=== PATIENT | male | born 1990 | race Caucasian/White ===

== ENCOUNTER 2024-07-20 15:05 | Outpatient (CLI) | payer OTHER, SELFPAY ==
--- NOTE | ~2024-07-20 | CT_ITS ---
CLINICAL INDICATION: Abdominal pain COMPARISON: None. TECHNIQUE: Multiple contiguous axial images of the abdomen and pelvis were performed following the ad ministration of with 100 mL Omnipaque-350 intravenous contrast The dose-length product (DLP) was 988.48 mGy-cm. Automated exposure control and iterative reconstruction technique were employed. FINDINGS/OBSERVATIONS: Visualized lower thorax: 5.3 mm nodule within the right lower lobe (axial series, image 6). The remainder of the bilateral lung bases are clear. The heart is of normal size, without pericardial effusion. Small hiatal hernia is present. Liver: Liver enhances homogeneously and is not enlarged measuring 18 cm in longitudinal dimension. Gallbladder and biliary system: The gallbladder is only minimally distended, and otherwise unremarkable. Pancreas: The pancreas enhances homogeneously without ductal dilatation. Spleen: The spleen enhances homogeneously and is not enlarged measuring 11 cm in longitudinal dimension. Kidneys: The bilateral kidneys enhance symmetrically without hydronephrosis or renal calculi. Adrenal glands: Unremarkable. Gastrointestinal tract: Colonic diverticulosis without surrounding inflammatory change. Appendix: The appendix is elongated, and is air-filled but moderately distended with a caliber of 10.5 mm. Trac e surrounding inflammatory change is noted, without hyperemia or periappendiceal fluid. The appendix can be visualized on axial series, image 66 through 82. Vasculature: Unremarkable. No aneurysmal dilatation or significant stenosis. Lymph nodes: No pathologically enlarged or morphologically suspicious lymph nodes within the retroperitoneum or at the root of the mesentery. Scattered nonpathologically enlarged lymph nodes detected within the mese ntery, a nonspecific finding in a patient this age. Pelvic structures: The bladder is distended, and otherwise unremarkable. The prostate gland is not enlarged. Right-sided hydrocele is visualized. Body wall and musculoskeletal: Small fat-containing umbilical hernia. No significant degenerative disease within the lower thoracic or lumbosacral spine. IMPRESSION: Air-filled elongated distended appendix with a caliber of 10.5 mm and trace surrounding inflammatory change for which clinical correlation is needed. Right-sided hydrocele Right lower lobe nodule, measuring 5 mm. Fleischner guidelines does not pertain to a patient of this age. Follow-up as clinically indicated. Reviewed, dictated and finalized at location A. THCARE SOCIAL WORKER IMPRESSION: Air-filled elongated distended appendix with a caliber of 10.5 mm and trace keyur rounding inflammatory change for which clinical correlation is needed. Right-sided hydrocele Right lower lobe nodule, measuring 5 mm. Fleischner guidelines does not pertain to a patient of this age. Follow-up as c linically indicated.
== END 2024-07-20 15:06 | disposition home or self-care (01) ==
PROVIDERS: PCP Internal Medicine; Visit Provider Clinical Nurse Specialist
DX: R10.9 Unspecified abdominal pain (principal); R10.33 Periumbilical pain; N50.811 Right testicular pain; N50.812 Left testicular pain; N43.3 Hydrocele, unspecified; R91.1 Solitary pulmonary nodule
CPT/HCPCS: 74177; Q9967

== ENCOUNTER 2024-11-07 07:56 | Outpatient (CLI) | payer OTHER, SELFPAY ==
--- NOTE | ~2024-11-07 | CT_ITS ---
CT of the Abdomen and Pelvis: Indication: Abdominal pain Technique: 2.5 mm axial scans were obtained through the abdomen and pelvis following intravenous adm inistration of 100 cc of Omnipaque 350. Dose reduction technique was used on this scan by utilizing a utomated exposure control and iterative reconstruction technique. The dose-length product (DLP) was 5 71.49 mGy-cm. COMPARISON: 08/02/2024 Findings: Scans through the lung bases are unremarkable. The liver, spleen, pancreas, gallbladder, adrenals and kidneys are within normal limits. No evidence of aortic aneurysm. No lymphadenopathy. No bowel obstruction or bowel wall thickening. Appendix measures up to 9 mm in diameter, but there is no periappendiceal inflammatory change, and there is air throughout the length of the appendix.. Images through the pelvis were performed. Urinary bladder unremarkable. No pelvic mass seen. No ascit es. Impression: Mildly prominent appendix by size measurements, but no other imaging findings are seen to suggest acu te appendicitis. This is felt to most likely represent a prominent but otherwise normal appendix rath er than acute appendicitis. Correlate clinically. Reviewed, dictated and finalized at location . Impression: Mildly prominent appendix by size measurements, but no other imaging findings a re seen to suggest acute appendicitis. This is felt to most likely represent a prominent but otherwise normal appendix rather than acute appendicitis. Correla te clinically.
--- OUTSIDE RECORDS SUMMARY | 2024-11-07 08:10 | XMS_ITS | Referral Summary ---
Author Organization [facility] Address [address] [place] [address] Care Team Providers Care Cash Poster Name Role Phone No, Physician Primary Care Provider [phone] Allergies No known active allergies Medications naproxen (NAPROSYN) 500 mg tablet Take 1 tablet (500 mg total) by mouth 2 (two) times a day with meals 30 tablet 06/11/2024 Active Active Problems Problem Noted Date Diagnosed Date Neck pain 11/27/2014 Overview (10/21/2016): Neck pain Social History Tobacco Use Types Packs/Day Years Used Date Smoking Tobacco: Never Assessed Personal Safety Answer Date Recorded Have you ever been in or are you currently in a harmful physical or emotional relationship or is someone making you feel afraid or unsafe? Denies 06/11/2024 Sex and Gender Information Value Date Recorded Sex Assigned at Not on file Legal Sex Male 12:09 PM HAIR STYLIST Gender Identity Not on file Sexual Orientation Not on file Last Filed Vital Signs Vital Sign Reading Time Taken Comments Blood Pressure 148/78 06/11/2024 3:58 PM HAIR STYLIST Pulse 84 06/11/2024 3:58 PM HAIR STYLIST Temperature 36.7 C (98.1 F) 06/11/2024 2:18 PM HAIR STYLIST Respiratory Rate 18 06/11/2024 3:58 PM HAIR STYLIST Oxygen Saturation 98% 06/11/2024 3:58 PM HAIR STYLIST Inhaled Oxygen Concentration - - Weight 95.3 kg (210 lb) 06/11/2024 12:06 PM HAIR STYLIST Height 182.9 cm (6') 06/11/2024 12:06 PM HAIR STYLIST Body Mass Index 28.48 06/11/2024 12:06 PM HAIR STYLIST Plan of Treatment Not on file Insurance [employer] OPEN ACCESS [employer] OPEN ACCESS Care Teams Cash Poster Relationship Specialty Start Date End Date No, Physician PCP - General 07/08/20
--- OUTSIDE RECORDS SUMMARY | 2024-11-07 08:10 | XMS_ITS | Clinical Summary ---
Author Organization [facility] Address [address] [place] [address] Care Team Providers Care Manager Market Name Role Phone No, Physician Primary Care Provider [phone] Allergies No known active allergies Medications naproxen (NAPROSYN) 500 mg tablet Take 1 tablet (500 mg total) by mouth 2 (two) times a day with meals 30 tablet 06/11/2024 Active Active Problems Problem Noted Date Diagnosed Date Neck pain 11/27/2014 Overview (10/21/2016): Neck pain Medical History Medical History Date Comments Hx Other Medical Tonsillectomy 2 003.; Comments: JAI 12/17/2014 - Social History Tobacco Use Types Packs/Day Years Used Date Smoking Tobacco: Never Assessed Personal Safety Answer Date Recorded Have you ever been in or are you currently in a harmful physical or emotional relationship or is someone making you feel afraid or unsafe? Denies 06/11/2024 Sex and Gender Information Value Date Recorded Sex Assigned at Not on file Legal Sex Male 12:09 PM BOOM STORAGE Gender Identity Not on file Sexual Orientation Not on file Obstetrics History Last Filed Vital Signs Vital Sign Reading Time Taken Comments Blood Pressure 148/78 06/11/2024 3:58 PM BOOM STORAGE Pulse 84 06/11/2024 3:58 PM BOOM STORAGE Temperature 36.7 C (98.1 F) 06/11/2024 2:18 PM BOOM STORAGE Respiratory Rate 18 06/11/2024 3:58 PM BOOM STORAGE Oxygen Saturation 98% 06/11/2024 3:58 PM BOOM STORAGE Inhaled Oxygen Concentration - - Weight 95.3 kg (210 lb) 06/11/2024 12:06 PM BOOM STORAGE Height 182.9 cm (6') 06/11/2024 12:06 PM BOOM STORAGE Body Mass Index 28.48 06/11/2024 12:06 PM BOOM STORAGE Plan of Treatment Health Maintenance Due Date Last Done Comments Depression Screening 1991 Hepatitis C Screening 1991 DTaP/Tdap/Td Vaccine (1 - Tdap) 2002 Varicella Vaccines (1 of 2 - 13+ 2-dose series) 02/05/2004 Hepatitis B Screening 2009 Regular Well Visit/Exam 18-64 2009 Influenza Vaccine (Season Ended) 2025 HPV Vaccines Aged Out No longer eligi ble based on patient's age to complete this topic Pneumococcal vaccine <65 Aged Out No longer eligible based on patient's age to complete this topic Insurance [employer] OPEN ACCESS [employer] OPEN ACCESS Care Teams Manager Market Relationship Specialty Start Date End Date No, Physician PCP - General 07/08/20
== END 2024-11-07 07:57 | disposition home or self-care (01) ==
LOC: ANHIMG 08:01
PROVIDERS: PCP Internal Medicine; Visit Provider Surgery
DX: R10.32 Left lower quadrant pain (principal); K36 Other appendicitis
CPT/HCPCS: 74177; Q9967

== ENCOUNTER 2024-12-01 08:43 | Outpatient (CLI) | payer OTHER, SELFPAY ==
--- OUTSIDE RECORDS SUMMARY | 2024-12-01 08:46 | XMS_ITS | Referral Summary ---
[facility] Organization [facility] Address [address] [place] [address] Care Team Providers Care Electrical And Instrumentation Manager Name Role Phone No, Physician Primary Care Provider [phone] Allergies No known active allergies Medications naproxen [...] on file Legal Sex Male 12:09 PM NCA CERTIFIED CONCIERGE Gender Identity Not on file Sexual Orientation Not on file Last Filed Vital Signs Vital Sign Reading Time Taken Comments Blood Pressure 148/78 06/11/2024 3:58 PM NCA CERTIFIED CONCIERGE Pulse 84 06/11/2024 3:58 PM NCA CERTIFIED CONCIERGE Temperature 36.7 C (98.1 F) 06/11/2024 2:18 PM NCA CERTIFIED CONCIERGE Respiratory Rate 18 06/11/2024 3:58 PM NCA CERTIFIED CONCIERGE Oxygen Saturation 98% 06/11/2024 3:58 PM NCA CERTIFIED CONCIERGE Inhaled Oxygen Concentration - - Weight 95.3 kg (210 lb) 06/11/2024 12:06 PM NCA CERTIFIED CONCIERGE Height 182.9 cm (6') 06/11/2024 12:06 PM NCA CERTIFIED CONCIERGE Body Mass Index 28.48 06/11/2024 12:06 PM NCA CERTIFIED CONCIERGE Plan of Treatment Not on file Insurance [employer] OPEN ACCESS [employer] OPEN ACCESS Care Teams Electrical And Instrumentation Manager Relationship Specialty Start Date End Date No, Physician PCP - General 07/08/20
--- OUTSIDE RECORDS SUMMARY | 2024-12-01 08:46 | XMS_ITS | Clinical Summary ---
Author Organization [facility] Address [address] [place] [address] Care Team Providers Care Student Name Role Phone No, Physician Primary Care Provider [phone] Allergies No known active allergies Medications naproxen [...] on file Legal Sex Male 12:09 PM WATCH ASSEMBLY INSTRUCTOR Gender Identity Not on file Sexual Orientation Not on file Obstetrics History Last Filed Vital Signs Vital Sign Reading Time Taken Comments Blood Pressure 148/78 06/11/2024 3:58 PM WATCH ASSEMBLY INSTRUCTOR Pulse 84 06/11/2024 3:58 PM WATCH ASSEMBLY INSTRUCTOR Temperature 36.7 C (98.1 F) 06/11/2024 2:18 PM WATCH ASSEMBLY INSTRUCTOR Respiratory Rate 18 06/11/2024 3:58 PM WATCH ASSEMBLY INSTRUCTOR Oxygen Saturation 98% 06/11/2024 3:58 PM WATCH ASSEMBLY INSTRUCTOR Inhaled Oxygen Concentration - - Weight 95.3 kg (210 lb) 06/11/2024 12:06 PM WATCH ASSEMBLY INSTRUCTOR Height 182.9 cm (6') 06/11/2024 12:06 PM WATCH ASSEMBLY INSTRUCTOR Body Mass Index 28.48 06/11/2024 12:06 PM WATCH ASSEMBLY INSTRUCTOR Plan of Treatment Health Maintenance Due Date [...] patient's age to complete this topic Insurance [employer] OPEN ACCESS [employer] OPEN ACCESS Care Teams Student Relationship Specialty Start Date End Date No, Physician PCP - General 07/08/20
== END 2024-12-01 08:44 | disposition home or self-care (01) ==
PROVIDERS: PCP Internal Medicine; Visit Provider Anesthesiology
DX: K42.9 Umbilical hernia without obstruction or gangrene (principal); K36 Other appendicitis
CPT/HCPCS: 36415; 86850; 86900; 86901

== ENCOUNTER 2024-12-06 00:25 | Day surgery (SDC) | payer OTHER, SELFPAY ==
[2024-10-23 15:21] VITALS: BMI 28.5
--- NOTE | 2024-10-23 15:31 | PC.NURSE ---
Addendum entered by Ken Finney RN 11/28/24 14:41: Patient says no changes in health history. Informed to be her at 10am on 12-06-2024 for surgery at 1200. Also coming in this tuesday for T&S. Original Note: Report to the Outpatient Waiting Room, entrance under the green pavilion located off [facility], at time _0600_ on date _[id number]_. Planned Procedure Time: _0730_.? Time changes happen often and if your time is changed the preop area will call you the afternoon before. - You and your visitor will be asked to self-screen and do not enter if you have any COVID symptoms. Please call surgeon if you need to reschedule. - A mask is optional within the hospital at this time. Patients may have clear liquids (water, carbonated beverages, clear teas, apple juice) until 3 hours prior to surgery with a maximum of 20 ounces. - No food from midnight until time of surgery and no smoking, or chewing tobacco (or any form of nicotine). No chewing gum, candy or mints. Take only the following medications with a SIP of water on the morning of surgery: ___None____ DO NOT STOP ANY OF YOUR OTHER PRESCRIPTION MEDICATIONS PRIOR TO SURGERY EXCEPT THE FOLLOWING Hold all vitamins and supplements for 3 days per anesthesiologist. Medications to discontinue per physician Date to take last dose Please no make-up, nail romansh, hairspray, perfume, deodorant, or body powder the day of surgery.? No jewelry (including any body piercings) or valuables the day of surgery, leave them at home.? Please take a shower or bath the night before, or the morning of, surgery with an antibacterial soap.? Wear comfortable, loose fitting clothing.? - Jewelry must be removed prior to entering the operating room.? Rings and piercings that are not removed may be cut off. - The hospital will not accept responsibility for valuables.? - Please leave all valuables, including medications, at home the day of surgery. If you are going home after surgery, a licensed class c driver must drive you home.? - NO public transportation without another adult if you receive anesthesia. - We recommend that an adult stay with you for 24 hours following discharge. - We also recommend that you do not drive, make important decision, drink alcoholic beverages, or take any drugs that were not prescribed by your health care provider for at least 24 hours after your discharge time. Follow any additional instructions given to you from your surgeon. Telephone instructions given to __Temo___and asked if any additional questions and then verbalized understanding. Patient advised to call surgeon office or pre surgery nurse liaison [phone] if any additional questions.
[2024-12-06] VITALS (16 sets, daily range): BP systolic 126–155; BP diastolic 74–91; PULSE 77–95; RESP 13–22; TEMP 36.3–36.4; O2SAT 95–100
--- OUTSIDE RECORDS SUMMARY | 2024-12-06 00:29 | XMS_ITS | Clinical Summary ---
Author Organization [facility] Medical Office Building A Address [address] [place] [address] Care Team Providers Care Production Inspector Name Role Phone No, Physician Primary Care Provider [phone] Allergies No known active allergies Medications naproxen (NAPROSYN) 500 mg tablet Take 1 tablet (500 mg total) by mouth 2 (two) times a day with meals 30 tablet 06/11/[address] (PROTONIX) 20 mg EC tablet Take 2 tablets (40 mg total) by mouth daily 30 tablet 12/04/2024 Active Active Problems Problem Noted Date Diagnosed Date Neck pain 11/27/2014 Overview (10/21/2016): Neck pain Encounters Date Type Department Care Team Description 12/03/2024 9:42 PM CDT - 12/04/2024 12:33 AM CDT Emergency [facility] Emergency Department [address] [place] [address] Silvia La MD Other chest pain (Primary Dx); Gastroesophageal reflux disease without esophagitis Discharge Disposition: Discharge to home or self care from Last 3 Months Medical History Medical History Date Comments Hx Other Medical Tonsillectomy 2 003.; Comments: JAI 12/17/2014 - Social History Tobacco Use Types Packs/Day Years Used Date Smoking Tobacco: Never Assessed Personal Safety Answer Date Recorded Have you ever been in or are you currently in a harmful physical or emotional relationship or is someone making you feel afraid or unsafe? 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 Gender Identity Not on file Sexual Orientation Not on file Obstetrics History Last Filed Vital Signs Vital Sign Reading Time Taken Comments Blood Pressure 127/88 12/04/2024 12:00 AM CDT Pulse 82 12/04/2024 12:30 AM CDT Temperature 36.7 C (98.1 F) 12/03/2024 7:20 PM CDT Respiratory Rate 19 12/03/2024 7:20 PM CDT Oxygen Saturation 98% 12/04/2024 12:30 AM CDT Inhaled Oxygen Concentration - - Weight 95.3 kg (210 lb) 12/03/2024 5:09 PM CDT Height 182.9 cm (6') 06/11/2024 12:06 PM MEDICAL CASE WORKER Body Mass Index 28.48 06/11/2024 12:06 PM MEDICAL CASE WORKER Plan of Treatment Health Maintenance Due Date [...] on patient's age to complete this topic Procedures Procedure Name Priority Date/Time Associated Diagnosis Comments TROPONIN T HIGH-SENSITIVITY 6-HOUR Timed 12/03/2024 11:56 PM CDT TROPONIN T HIGH-SENSITIVITY 2-HOUR Timed 12/03/2024 7:28 PM CDT XR CHEST 1 VIEW ED 12/03/2024 5:29 PM CDT EGFR STAT 12/03/2024 5:20 PM CDT DIFFERENTIAL AUTO STAT 12/03/2024 5:2 0 PM CDT TROPONIN T HIGH-SENSITIVITY SERIES (BASELINE, 2HR, 4HR, 6HR) STAT 12/03/2024 5:20 PM CDT COMPREHENSIVE METABOLIC PANEL STAT 12/03/2024 5:20 PM CDT CBC WITH AUTO DIFFERENTIAL STAT 12/03/2024 5:20 PM CDT ECG 12-LEAD STAT 12/03/2024 5:16 PM CDT from Last 3 Months Results * Troponin T high-sensitivity 6-hour (12/03/2024 11:56 PM CDT) Trop T hs <6 <=22 ng/L Comment: Interpretive Data For further hscTnT resources including the diagnostic algorithm and an aid in interpretation, copy and paste this link: https://nrl.[employer]int[employer].org/show/hsTrop Current Interpretive Data last revised 2020. Trop T hs delta -5 ng/L [facility] ([facility]) Trop T hs interp Equivocal [facility] ([facility]) Blood 12/03/2024 11:5 6 PM CDT 12/03/2024 11:59 PM CDT Mauricio Hopkins MD LAB BLOOD ORDERABLES Final R esult [facility] ([place]) 1 [facility] [place] [address] * Troponin T high-sensitivity 2-hour (12/03/2024 7:28 PM CDT) Trop T hs <6 <=22 ng/L Comment: Interpretive Data For further hscTnT resources including the diagnostic algorithm and an aid in interpretation, copy and paste this link: https://nrl.P[employer].org/show/hsTrop Current Interpretive Data last revised 2020. Trop T hs delta -5 ng/L [facility] ([facility]) Trop T hs interp Equivocal [facility] ([place]) Blood 12/03/2024 7:28 PM CDT 12/03/2024 7:47 PM CDT Mauricio Hopkins MD LAB BLOOD ORDERABLES Final R esult [facility] ([place]) 1 [facility] [place] [address] * XR Chest 1 Vw Portable (if patient condition/safety warrant portable) (12/03/2024 5:29 PM CDT) Anatomical Region Laterality Modality Body, Chest N/A Computed Radiogr aphy 12/03/2024 6:18 PM CDT Narrative 12/03/2024 6:19 PM CDT EXAM DESCRIPTION: XR CHEST 1 VIEW REASON FOR STUDY: chest pain Pt arrives to ED via POV c/o intermittent chest pain x 2 weeks. Pt states over the weekend it started and didn't go away. Pt states nothing makes it worse of better. Pt states he works from home and sat all day and had chest pain. Pt denies SOB, n/v. Pt denies cardiac hx. TECHNIQUE: Single radiographic view(s) of the chest. COMPARISON: None FINDINGS: LUNGS: No focal opacity, pleural effusion, or pneumothorax. HEART/MEDIASTINUM: Cardiac silhouette normal in size. Mediastinal and hilar contours appear normal. LINES/TUBES: None. BONES: No acute osseous abnormality. IMPRESSION: No acute cardiopulmonary abnormality. THIS IS AN ELECTRONICALLY VERIFIED FINAL REPORT 12/03/2024 6:19 PM - Electronically signed by Christopher Rojo M.D. KH: SHAN Report ID: [id number] Reading Location: [id number] Procedure Note Christopher Rojo MD - 12/03/2024 EXAM DESCRIPTION: XR CHEST 1 VIEW REASON FOR STUDY: chest pain Pt arrives to ED via POV c/o intermittent chest pain x 2 weeks. Pt statesover the weekend it started and didn't go away. Pt states nothing makes itworse of better. Pt states he works from home and sat all day and had chest pain.Pt denies SOB, n/v. Pt denies cardiac hx. TECHNIQUE: Single radiographic view(s) of the chest. COMPARISON: None FINDINGS: LUNGS: No focal opacity, pleural effusion, or pneumothorax. HEART/MEDIASTINUM: Cardiac silhouette normal in size. Mediastinal andhilar contours appear normal. LINES/TUBES: None. BONES: No acute osseous abnormality. IMPRESSION: No acute cardiopulmonary abnormality. THIS IS AN ELECTRONICALLY VERIFIED FINAL REPORT 12/03/2024 6:19 PM - Electronically signed by Christopher Rojo M.D. KH: SHAN Report ID: [id number] Reading Location: [place] [address] Silvia La MD IMG XR PROCEDURES F inal Result * Troponin T high-sensitivity series (baseline, 2hr, 4hr, 6hr) (12/03/2024 5:20 PM CDT) Pathologist [facility] Emergency Department Trop T hs 11 <=22 ng/L Comment: Interpretive Data For further hscTnT resources including the diagnostic algorithm and an aid in interpretation, copy and paste this link: https://nrl.testcatalog.org/show/hsTrop Current Interpretive Data last revised 2020. Blood 12/03/2024 5:20 PM CDT 12/03/2024 5:25 PM CDT Silvia La MD LAB BLOOD ORDERABLE S Final Result [facility] [place]) 1 [facility] [place] [address] * eGFR (12/03/2024 5:20 PM CDT) Pathologist [facility] Emergency Department eGFR >90 >=60 mL/min/1. 73 m2 Comment: Interpretive Data Reference Interval Normal >/= 90 mL/min/1.73m2 Mildly decreased* 60 - 89 mL/min/1.73m2 Mildly to moderately decreased 45 - 59 mL/min/1.73m2 Moderately to severely decreased 30 - 44 mL/min/1.73m2 Severely decreased 15 - 29 mL/min/1.73m2 Kidney Failure < 15 mL/min/1.73m2 *Relative to young adult level Estimated glomerular filtration rate is determined by the 2020 CKD-EPI equation recommended by the National Kidney Foundation (A Unifying Approach to GFR Estimation: Recommendations of the NKF-ASK Task Force on Reassessing the Inclusion of Race in Diagnosing Kidney Disease, JASN 2020). The CKD-EPI equation should not be used for patients with unstable renal function and has not been validated in children and those over 70. Current interpretive data was last reviewed 2021. Blood 12/03/2024 5:20 PM CDT 12/03/2024 5:25 PM CDT us Silvia La MD LAB BLOOD ORDERABLE S Final Result [facility] ([place]) [address] [facility] [place] [address] * (ABNORMAL) Differential, auto (12/03/2024 5:20 PM CDT) Neutrophil abs 4.49 1.50 - 6.50 K/cumm Imm gran abs 0.02 0.00 - 0.10 K/cumm [facility] ([place]) Lymphocyte abs 2.49 0.80 - 3.30 K/cumm [facility] ([place]) Monocyte abs 0.82(H) 0.20 - 0.80 K/cumm [facility] ([place]) Eosinophil abs 0.11 0.00 - 0.50 K/cumm [facility] ([place]) Basophil abs 0.04 0.00 - 0.10 K/cumm [facility] ([place]) Neutrophil pct 56.3 % [facility] ([place]) Comment: Interpretive Data Percent cell count reference ranges are not reported, since discordance with absolute values may lead to misinterpretation of CBC data. Current Interpretive Data was last revised on 2017. Imm gran pct 0.3 % [facility] ([place]) Comment: Interpretive Data Percent cell count reference ranges are not reported, since discordance with absolute values may lead to misinterpretation of CBC data. Current Interpretive Data was last revised on 2017. Lymphocyte pct 31.2 % [facility] ([place]) Comment: Interpretive Data Percent cell count reference ranges are not reported, since discordance with absolute values may lead to misinterpretation of CBC data. Current Interpretive Data was last revised on 2017. Monocyte pct 10.3 % [facility] ([place]) Comment: Interpretive Data Percent cell count reference ranges are not reported, since discordance with absolute values may lead to misinterpretation of CBC data. Current Interpretive Data was last revised on 2017. Eosinophil pct 1.4 % [facility] ([place]) Comment: Interpretive Data Percent cell count reference ranges are not reported, since discordance with absolute values may lead to misinterpretation of CBC data. Current Interpretive Data was last revised on 2017. Basophil pct 0.5 % [facility] ([place]) Comment: Interpretive Data Percent cell count reference ranges are not reported, since discordance with absolute values may lead to misinterpretation of CBC data. Current Interpretive Data was last revised on 2017. Blood 12/03/2024 5:20 PM CDT 12/03/2024 5:25 PM CDT us Silvia La MD LAB BLOOD ORDERABLE S Final Result [facility] ([place]) 1 [facility] [place] [address] * CBC with auto differential (12/03/2024 5:20 PM CDT) WBC 7.97 3.80 - 9.90 K/cumm Hgb 15.1 13.0 - 17.5 g/dL [facility] ([place]) Hct 44.7 38.9 - 50.3 % [facility] ([place]) Plt 231 150 - 400 K/cumm [facility] ([place]) MPV 10.4 9.1 - 12.3 fL [facility] ([place]) RBC 5.34 4.30 - 5.80 M/cumm [facility] MCV 83.7 81.3 - 96.4 fL [facility] MCH 28.3 27.1 - 33.3 pg [facility] ([place]) MCHC 33.8 32.3 - 35.7 g/dL [facility] ([place]) RDW CV 12.5 11.1 - 14.9 % [facility] RDW SD 37.6 35.7 - 48.1 fL [facility] NRBC abs 0.00 0.00 - 0.01 K/cumm [facility] ([place]) Blood Venous blood specimen / Unknown 12/03/2024 5:20 PM CDT 12/03/2024 5:25 PM CDT us Silvia La MD LAB BLOOD ORDERABLE S Final Result [facility] ([place]) [address] [facility] [place] [address] * Comprehensive metabolic panel (12/03/2024 5:20 PM CDT) Sodium 140 135 - 145 mmol/L Potassium, pl 4.3 3.3 - 4.9 mmol/L [facility] ([place]) Chloride 101 97 - 110 mmol/L [facility] ([place]) CO2 27 22 - 32 mmol/L [facility] Anion gap 12 2 - 15 mmol/L [facility] ([place]) BUN 10 6 - 25 mg/dL [facility] ([place]) Creatinine 0.85 0.80 - 1.30 mg/dL [facility] Glucose 102 70 - 199 mg/dL [facility] Comment: Interpretive Data Fasting glucose >/= 126 mg/dl is diagnostic for diabetes. Fasting is defined as no caloric intake for at least 8 hours. Fasting glucose between 100 mg/dl to 125 mg/dl is diagnostic of prediabetes. In a patient with classic symptoms of hyperglycemia or hyperglycemic crisis, a random glucose >/= 200 mg/dl is diagnostic for diabetes. In the absence of unequivocal hyperglycemia, results should be confirmed by repeat testing. The classification and Diagnosis of Diabetes Diabetes Care 2021; 46: S19-S40. Current interpretive data was last revised 2022. Calcium 9.7 8.5 - 10.3 mg/dL [facility] ([place]) Bilirubin, total 0.4 0.1 - 1.2 mg/dL [facility] ([place]) Protein, pl 8.0 6.5 - 8.5 g/dL [facility] ([place]) Albumin 4.6 3.5 - 5.0 g/dL [facility] ([place]) Alk phos 89 40 - 130 Units/L [facility] ([place]) ALT 38 7 - 55 Units/L [facility] ([place]) AST 25 10 - 50 Units/L [facility] ([place]) Comment:Slightly Hemolyzed S pecimen Blood 12/03/2024 5:20 PM CDT 12/03/2024 5:25 PM CDT Silvia La MD LAB BLOOD ORDERABLE S Final Result Performing Organization Address City/[facility] Co de Phone Number [facility] ([place]) [address] [facility] [place] [address] * ECG 12 lead (12/03/2024 5:16 PM CDT) 12/03/2024 5:16 PM CDT Narrative [facility] [employer] - 12/04/2024 6:54 AM CDT Vent Rate: 83 bpm RR Interval: 722 msec NM Interval: 156 msec QRS Duration: 126 msec QT Interval: 356 msec QTC Interval: 395 msec P-R-T [place]: 66 - 41 - 58 degrees IMPRESSION: SINUS RHYTHM POSSIBLE RIGHT VENTRICULAR CONDUCTION DELAY [RSR (QR) IN V1/V2] BORDERLINE ECG Electronically Signed By: Dipak Watkins MD Silvia La MD ECG ORDERABLES Fin al Result Performing Organization Address City/[facility] Co de Phone Number [facility] from Last 3 Months Insurance [employer] OPEN ACCESS [employer] OPEN ACCESS Care Teams Production Inspector Relationship Specialty Start Date End Date No, Physician PCP - General 07/08/20
--- OUTSIDE RECORDS SUMMARY | 2024-12-06 00:29 | XMS_ITS | Referral Summary ---
Author Organization [facility] Medical Office Building A Address [address] [place] [address] Care Team Providers Care Van Driver Name Role Phone No, Physician Primary Care Provider [phone] Encounters Date Type Department Care Team Description 12/03/2024 9:42 PM CDT - 12/04/2024 12:33 AM CDT Emergency [facility] Emergency Department [address] [place] [address] Silvia La MD Other chest pain (Primary Dx); Gastroesophageal reflux disease without esophagitis Discharge Disposition: Discharge to home or self care from Last 3 Months Allergies No known active allergies Medications naproxen [...] on file 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 Gender Identity Not on file Sexual Orientation Not on file Last Filed Vital Signs Vital Sign Reading Time Taken Comments Blood Pressure 127/88 12/04/2024 12:00 AM CDT Pulse 82 12/04/2024 12:30 AM CDT Temperature 36.7 C (98.1 F) 12/03/2024 7:20 PM CDT Respiratory Rate 12/03/2024 7:20 PM CDT Oxygen Saturation 98% 12/04/2024 12:30 AM CDT Inhaled Oxygen Concentration - - Weight 95.3 kg (210 lb) 12/03/2024 5:09 PM CDT Height 182.9 cm (6') 06/11/2024 12:06 PM CEMENTER HELPER Body Mass Index 28.48 06/11/2024 12:06 PM CEMENTER HELPER Plan of Treatment Not on file Procedures Procedure Name Priority Date/Time Associated Diagnosis [...] in interpretation, copy and paste this link: https://nrl.[employer].org/show/hsTrop Current Interpretive Data last revised 2020. Trop T hs delta -5 ng/L [facility] ([facility]) Trop T hs interp Equivocal [facility] ([place]) Blood 12/03/2024 11:5 6 PM CDT 12/03/2024 11:59 PM CDT Mauricio Hopkins MD LAB BLOOD ORDERABLES Final R esult Performing Organization Address City/[facility]/ZIP Co de Phone Number [facility] ([place]) [address] [facility] [employer] [place] [id number] * Troponin T high-sensitivity 2-hour (12/03/2024 7:28 PM CDT) Pathologist [facility] Trop T hs <6 <=22 ng/L Comment: Interpretive Data For further hscTnT resources including the diagnostic algorithm and an aid in interpretation, copy and paste this link: https://nrl.[employer].org/show/hsTrop Current Interpretive Data last revised 2020. Trop T hs delta -5 ng/L [facility] ([place]) Trop T hs interp Equivocal [facility] ([place]) Blood 12/03/2024 7:28 PM CDT 12/03/2024 7:47 PM CDT Mauricio Hopkins MD LAB BLOOD ORDERABLES Final R esult [facility] ([place]) 1 [facility] [place] [address] * XR Chest 1 Vw Portable (if [...] 6:19 PM - Electronically signed by Christopher TORREZ: SHAN Report ID: [id number] Reading Location: [place] [address] Procedure Note Christopher Rojo MD - 12/03/2024 [...] Christopher Rojo M.D. KH: SHAN Report ID: [id number] Reading Location: [id number] Silvia La MD IMG XR PROCEDURES F inal Result * Troponin T high-sensitivity series (baseline, 2hr, 4hr, 6hr) (12/03/2024 5:20 PM CDT) Trop T hs 11 <=22 ng/L Comment: Interpretive Data For further hscTnT resources including the diagnostic algorithm and an aid in interpretation, copy and paste this link: https://nrl.testcatalog.org/show/hsTrop Current Interpretive Data last revised 2020. Blood 12/03/2024 5:20 PM CDT 12/03/2024 5:25 PM CDT Silvia La MD LAB BLOOD ORDERABLE S Final Result [facility] [address] [place] [address] Department of Laboratories [place] [id number] * eGFR (12/03/2024 5:20 PM CDT) eGFR >90 >=60 mL/min/1. 73 m2 Comment: [...] MD LAB BLOOD ORDERABLE S Final Result [facility] ([place]) [facility] Department [place] [address] * (ABNORMAL) Differential, auto (12/03/2024 5:20 PM CDT) Neutrophil abs 4.49 1.50 - 6.50 K/cumm Imm gran abs 0.02 0.00 - 0.10 K/cumm [facility] ([place]) Lymphocyte abs 2.49 0.80 - 3.30 K/cumm [facility] ([place]) Monocyte abs 0.82(H) 0.20 - 0.80 K/cumm [facility] ([place]) Eosinophil abs 0.11 0.00 - 0.50 K/cumm [facility] ([place]) Basophil abs 0.04 0.00 - 0.10 K/cumm [facility] ([place]) Neutrophil pct 56.3 % [facility] ([place]) Comment: Interpretive Data Percent cell count reference [...] MD LAB BLOOD ORDERABLE S Final Result [facility] ([place]) 1 [facility] Department [place] [address] * CBC with auto differential (12/03/2024 5:20 PM CDT) WBC 7.97 3.80 - 9.90 K/cumm Hgb 15.1 13.0 - 17.5 g/dL [facility] ([place]) Hct 44.7 38.9 - 50.3 % [facility] ([place]) Plt 231 150 - 400 K/cumm [facility] ([place]) MPV 10.4 9.1 - 12.3 fL [facility] ([place]) RBC 5.34 4.30 - 5.80 M/cumm [facility] ([place]) MCV 83.7 81.3 - 96.4 fL [facility] ([place]) MCH 28.3 27.1 - 33.3 pg [facility] ([place]) MCHC 33.8 32.3 - 35.7 g/dL [facility] ([place]) RDW CV 12.5 11.1 - 14.9 % [facility] ([place]) RDW SD 37.6 35.7 - 48.1 fL [facility] ([place]) NRBC abs 0.00 0.00 - 0.01 K/cumm [facility] ([place]) Blood Venous blood specimen / Unknown 12/03/2024 5:20 PM CDT 12/03/2024 5:25 PM CDT us Silvia La MD LAB BLOOD ORDERABLE S Final Result [facility] ([place]) [address] [facility] Department [place] [address] * Comprehensive metabolic panel (12/03/2024 5:20 PM CDT) Sodium 140 135 - 145 mmol/L Potassium, pl 4.3 3.3 - 4.9 mmol/L [facility] ([place]) Chloride 101 97 - 110 mmol/L [facility] ([place]) CO2 27 22 - 32 mmol/L [facility] ([place]) Anion gap 12 2 - 15 mmol/L [facility] ([place]) BUN 10 6 - 25 mg/dL [facility] ([place]) Creatinine 0.85 0.80 - 1.30 mg/dL [facility] ([place]) Glucose 102 70 - 199 mg/dL [facility] ([place]) Comment: Interpretive Data Fasting glucose [...] classification and Diagnosis of Diabetes Diabetes Care 202; 46: S19-S40. Current interpretive data was last revised 2022. Calcium 9.7 8.5 - 10.3 mg/dL [facility] ([place]) Bilirubin, total 0.4 0.1 - 1.2 mg/dL [...] ORDERABLE S Final Result Performing Organization Address City/[facility] Co de Phone Number [facility] ([place]) [address] [facility] Department [place] [address] * ECG 12 lead (12/03/2024 5:16 PM CDT) 12/03/2024 5:16 PM CDT Narrative [facility] - 12/04/2024 6:54 AM CDT Vent Rate: 83 bpm RR Interval: 722 msec ID Interval: 156 msec QRS Duration: 126 msec QT Interval: 356 msec QTC Interval: 395 msec P-R-T [place]: 66 - 41 - 58 degrees IMPRESSION: SINUS RHYTHM POSSIBLE RIGHT VENTRICULAR CONDUCTION DELAY [RSR (QR) IN V1/V2] BORDERLINE ECG Electronically Signed By: Dipak Watkins MD Silvia La MD ECG ORDERABLES Fin al Result Performing Organization Address [facility] Co de Phone Number [facility] from Last 3 Months Insurance [employer] [facility] Care Teams Van Driver Relationship Specialty Start Date End Date No, Physician PCP - General 07/08/20
[2024-12-06] MEDS: ACETAMINOPHEN 500 MG TABLET 1000 MG PO (11:00)
--- NOTE | 2024-12-06 11:04 | WPDANESEPPF ---
Anes - Initial Pre Proc Eval Procedure: Operation Date: 12/06/24 12:00 Proposed Procedures p Robotic Assisted Recurrent Umbilical Hernia Repair with Mesh - Cherelle Zimmerman MD s Robotic Assisted Appendectomy - Cherelle Zimmerman MD Date/Time: 12/06/24 11:04 Surgeon: Cherelle Zimmerman MD Pre Op Diagnosis: Recurrent Umb Hernia, Chronic Appendicitis Patient Data Age: 34 Gender: M Height: 1.83 m Weight: 95.5 kg Allergies Allergy/AdvReac Type Severity Reaction Status Date / Time No Known Allergies Allergy Verified 11/28/24 14:37 Home Medications ?Medication ?Instructions ?Recorded ?Confirmed ?Type No Home Medications 07/25/24 11/28/24 History Patient hx anesthesia problems: none Family hx anesthesia problems: none Results Review: All pre-operative results and documents have been reviewed as part of the pre-operative evaluation. [facility] Surgical History Surgical History Hx of tonsillectomy H/O umbilical hernia repair January 2019 Family History Family History Grandparent Malignant neoplasm of prostate Other Hypertension Social History Social History (Updated 08/15/24 @ 09:30 by Josue Wu MA) Smoking status: Never smoker Alcohol intake: current Do You Feel Safe in your Home?: Yes Lack of Transportation: No Lack of Food: Never True Current Housing: I Have Housing Concerned About Future Housing: No Difficulty Paying Gas/Electric Bills: No Difficulty Paying for Meds: No Currently Unemployed: No Education: Associate Degree Difficulty w/ Childcare or Family Care: No Living arrangements: with family Spiritual care concerns: No Anes - Eval Final PreProcedure Day of Procedure 12/06/24 11:04 Patient weight: overweight Heart: regular rate and rhythm Lungs: clear to auscultation Airway: Mallampati scale class II Neurological: alert and oriented Last oral intake: >/= 8 hours ASA classification: II Emergent: no Anesthetic plan: proceed Anesthesia type and monitoring: general ETT and standard monitoring Results Review: All pre-operative results and documents have been reviewed as part of the pre-operative evaluation. Informed Consent: The patient's anesthetic plan and its attendant risks and benefits were discussed with the patient/family/POA. Questions were solicited and answers provided to the satisfaction of the patient/family/POA.
[2024-12-06] MEDS: LACTATED RINGERS 1,000 ML 30 ML IV CONT ×2 (11:05→13:47)
[2024-12-06] MEDS: KETOROLAC 15 MG/ML VIAL (*BKC) IV PUSH (11:11)
--- NOTE | 2024-12-06 11:45 | P.HP_ITS ---
H&P: HPI History of Present Illness Date/Time: 12/06/24 11:45 Chief Complaint: chronic appendicitis, recurrent umbilical hernia Narrative: Temo is a 34 y/o male who presents to the office at the request of Naye MALAVE for evaluation of abdominal pain. Patient states pain is mostly near his umbilicus. States this has been ongoing for the past 6 months. Denies any issues with bowel habits. No fevers. CT abd/pelvis on 07/22/24 showed air-filled elongated distended appendix with a caliber of 10.5 mm and trace surrounding inflammatory change for which clinical correlation is needed. Right-sided hydro thomas. Right lower lobe nodule, measuring 5 mm. Small fat-containing umbilical hernia. He does have a past surgical history of umbilical hernia repair in 2019. He was evaluated at [facility] ED on 06/10/24 with lower abdominal pain/right testicular pain. Ultrasound did not show any lesion or torsion. Review of Systems Review of Systems: All systems reviewed & are unremarkable except as noted in HPI and below PMFSH Surgical History Surgical History Hx of tonsillectomy H/O umbilical hernia repair January 2019 Family History Family History Grandparent Malignant neoplasm of prostate Other Hypertension Social History Social History Smoking status: Never smoker Alcohol intake: current Do You Feel Safe in your Home?: Yes Lack of Transportation: No Lack of Food: Never True Current Housing: I Have Housing Concerned About Future Housing: No Difficulty Paying Gas/Electric Bills: No Difficulty Paying for Meds: No Currently Unemployed: No Education: Associate Degree Difficulty w/ Childcare or Family Care: No Living arrangements: with family Spiritual care concerns: No Meds Home Medications and Allergies Home Medications ?Medication ?Instructions ?Recorded ?Confirmed ?Type No Home Medications 07/25/24 11/28/24 History Allergies Allergy/AdvReac Type Severity Reaction Status Date / Time No Known Allergies Allergy Verified 11/28/24 14:37 Vital Signs Vital Signs - 24 hr 12/06/24 10:09 Temperature 36.4 C L Pulse Rate 77 Respiratory Rate 16 Blood Pressure 155/91 H Pulse Oximetry 99 Oxygen Delivery Room Air Exam Const: General: cooperative, comfortable and no acute distress Resp: Auscultation: clear to auscultation bilaterally Cardio: Rate: regular rate Rhythm: regular rhythm GI: Inspection: normal to inspection GI Palp: Yes abdominal tenderness and Yes Soft to palpation Other: mild periumbilical and RLQ pain, recurrent umbilical hernia measuring 1-2 cm Assessment and Plan Assessment and plan (1) Chronic appendicitis: Code(s): K36 - Other appendicitis Status: Acute Assessment and Plan: will setup for robotic assisted appendectomy (2) Recurrent umbilical hernia: Code(s): K42.9 - Umbilical hernia without obstruction or gangrene Status: Acute Assessment and Plan: will setup for robotic assisted repair with mesh
--- NOTE | 2024-12-06 11:49 | WPDHPUPDATE1 ---
History and Physical Update Update Date/Time: 12/06/24 11:49 History and Physical has been reviewed, including an updated exam of the patient. There are NO changes in the patient's condition. Risks, benefits, and alternatives have been discussed and questions answered. Patient agrees to proceed with procedure.
[2024-12-06] MEDS: metroNIDAZOLE 500 MG/ISO 100ML 500 MG/100 ML BAG 100 MG IVPB (11:56)
[2024-12-06] MEDS: ceFAZolin 2 GM/D5W 50 ML 2 GM/50 ML BAG IVPB (11:56)
[2024-12-06] MEDS: BUPIVACAINE/EPINEPHRINE 0.5% 50 ML VIAL 30 ML INFILTRATE (12:18)
--- NOTE | 2024-12-06 14:07 | W.PM.PROC2 ---
Procedure Note - Detailed Date of Procedure 12/06/24 Pre-op Diagnosis Recurrent Umb Hernia, Chronic Appendicitis Post-op Diagnosis Same Procedure Performed Robotic assisted appendectomy, robotic assisted repair of recurrent umbilical hernia measuring 3 cm with mesh Surgeon Cherelle Zimmerman MD Anesthesia General and Local Indications 34-year-old male presenting with chronic periumbilical pain associated with recurrent umbilical hernia. Patient also with multiple episodes of right lower quadrant pain and previous imaging with appendicitis. Findings Chronic appendicitis with injected and dilated appendix, 3 cm recurrent umbilical hernia with incarcerated fat Description of Procedure The patient was taken to the operating room and placed in the supine position. After adequate induction of general anesthesia, the patient was prepped and draped in the normal sterile fashion. A time-out was then done to verify the patient's identity, as well as the procedure being performed. I then made a 12 mm incision in the left upper quadrant. Veress needle was placed in the peritoneal cavity and CO2 gas was insufflated. After adequate pneumoperitoneum was achieved, the Veress needle was removed and a 12 mm Optiview trocar was placed under visualization. I then placed a laparoscopic through this trocar site and under direct visualization placed a further 8 mm left mid abdominal port, as well as a 8 mm left lower quadrant port. The DA Devin robot was then docked to these 3 port sites. I then scrubbed out and went to the robotic console. I noted the recurrent hernia at the umbilicus. There was noted to be incarcerated fat and omentum within the hernia. I was able to easily reduce this fat and omentum back into the abdominal cavity. I then identified the cecum. The cecum was retracted medially and superior to allow exposure of the appendix. The appendix was then visualized and noted to be injected and dilated. There was adhesions of the appendix to the right lateral abdominal wall and these were taken down with the Bovie cautery. Once I was able to free the entirety of the appendix, I was able to grasp near the tip and retract the appendix laterally and superiorly. I was then able to identify the base of the appendix with the cecum. I then created a window between the appendix itself and the mesoappendix. Using a vascular staple load, I was able to transect the mesoappendix. The stapler was then re-loaded and a blue staple load was then used to transect the base of the appendix with the cecum. An Endo pouch was then placed through the 12 mm port site and the specimen was placed into the Endo pouch. I then turned my attention to the recurrent umbilical hernia. There was noted to be about a 3 cm defect in the umbilicus. There was some noted previous suture from previous repair. A I then used a 0 Stratafix suture to primarily close the defect. Once the defect was closed, placed a 10 x 15 piece of Ventralight mesh into the abdominal cavity. The mesh was brought up to the anterior abdominal wall centered over the defect. This was noted to have good wide local coverage of the previous defect. I then sutured the mesh in place using 2 0 V lock sutures x2. Once completely sutured up, the mesh was again noted to be tension-free and have good wide local coverage of the defect. We then removed the endo-pouch containing the appendiceal specimen through the 12 mm port site. The 12 mm port site was then closed at the fascial level under direct visualization with a Dash cone and 0 Vicryl suture. The robot was then undocked and the abdomen was desufflated. All incisions were then closed with 4-0 Monocryl subcuticular suture. Dermabond was placed on all wounds. The patient tolerated the procedure well and was extubated postoperatively. He will be sent to the recovery room in stable condition. Implants 10 x 15 cm Ventralight mesh in the underlay position Estimated Blood Loss 20 Pathology Yes Complications No immediate complications Condition Stable Disposition PACU [facility] Billing Surgery - Charge Forward: Surgery Billing
[2024-12-06] MEDS: ONDANSETRON INJ 4 MG/2 ML VIAL IV PUSH (14:27)
[2024-12-06] MEDS: fentaNYL CITRATE INJ (*CRX) 100 MCG/2 ML VIAL 25 MCG IV PUSH ×4 (14:30→16:16)
[2024-12-06] MEDS: SCOPOLAMINE 1 MG PATCH 1 PATCH TRANSDERM (15:16)
[2024-12-06] MEDS: diphenhydrAMINE HCl INJ 50 MG/ML VIAL 25 MG IV PUSH (15:16)
--- NOTE | 2024-12-06 15:19 | SUR.PHASEI ---
1515 - spoke with anesthesia, Dr. Mckeon, for orders for nausea. Benadryl and scope patch ordered
[2024-12-06] MEDS: oxyCODONE HCL (*CRX) 5 MG TAB IR PO (17:14)
== END 2024-12-06 18:02 | disposition home or self-care (01) ==
PROVIDERS: PCP Internal Medicine; Visit Provider Surgery
PROC: (CPT 49615; principal; 2024-12-06 12:00)
PROC: 0DTJ4ZZ Resection of Appendix, Percutaneous Endoscopic Approach (ICD-10-PCS; CPT 44970; 2024-12-06 12:00)
DX: K36 Other appendicitis (principal); K42.9 Umbilical hernia without obstruction or gangrene
CPT/HCPCS: 49615; S2900; 88304; A9270; C1781; J0690; J1100; J1200; J1836; J1885; J2250; J2405; J2704; J3010; J7030; J7120